=== PATIENT | female | born 1995 | race Caucasian/White ===

== ENCOUNTER → 2021-01-26 22:16 | Outpatient (CLI) | payer OTHER, SELFPAY ==
[2021-01-26 17:58] VITALS: BMI 26.3
[2021-01-26 22:30] LABS: Absolute Lymphocyte Count 3.66 X10^3/uL (0.83-4.51); Absolute Neutrophil Count 5.4 X10^3/uL (2.0-7.7); Basophil# 0.05 X10^3/uL; Basophil% 0.5 % (0-1); Eosinophil# 0.18 X10^3/uL; Eosinophils% 1.8 % (0-5); Hematocrit 41.3 % (37-47); Hemoglobin 13.7 g/dL (12.0-15.0); Lymphocyte # 3.66 X10^3/ul (0.83-4.51); Lymphocyte % 36.7 % (19-41); Mean Corp Hgb Conc 33.2 g/dL (32-36); Mean Corpuscular Hgb 30.4 pg (27.0-32.0); Mean Corpuscular Volume 91.6 fL (81-99); Monocyte# 0.67 X10^3/uL; Monocyte% 6.7 % (0-10); NRBC Flagged by Analyzer 0 % (0-5); Neutrophil # 5.37 X10^3/uL (2.7-7.7); Neutrophil % 53.9 % (47-70); Platelet Count 382 K/mm3 (150-450); RBC Distribution Width CV 12.3 % (11.6-14.6); RBC Distribution Width SD 41.1 fl (35.1-43.9); Red Blood Count 4.51 M/mm3 (4.2-5.4)
[2021-01-26 22:56] LABS: ALB/GLOB Ratio 1.3 RATIO (0.9-2.4); AST(SGOT) 16 U/L (15-37); Alanine Aminotransfer ALT/SGPT 22 U/L (13-56); Alkaline Phosphatase 62 U/L (45-117); Anion Gap 9 (5-15); BUN 13 mg/dL (7-18); BUN/Creat Ratio 15.2 RATIO (10-20); Calcium,Total 8.9 mg/dL (8.5-10.1); Chloride 106 mmol/L (98-107); Creatinine, Serum 0.86 mg/dL (0.55-1.02); EST Glomerular Filtration Rate 85 mL/min (>60); Est Glom Filt Rate - Afr Amer 102 mL/min (>60); Globulin 3.1 g/dL (2.2-4.2); Glucose 98 mg/dL (74-106); Potassium 3.9 mmol/L (3.5-5.1); Protein, Total 7.1 g/dL (6.4-8.2); Sodium Level 140 mmol/L (136-145); T4 Free Direct 0.96 ng/dL (0.76-1.46); Thyroid Stim Hormone (TSH) 2.22 uIU/mL (0.358-3.74)
[2021-01-29 14:20] LABS: Vitamin B12 264 pg/mL (211-911)
== END ==
PROVIDERS: Referring Provider Nurse Practitioner; Visit Provider Nurse Practitioner
DX: R53.83 Other fatigue (principal); R63.5 Abnormal weight gain; K59.00 Constipation, unspecified; G47.00 Insomnia, unspecified
CPT/HCPCS: 80053; 82533; 82607; 84439; 84443; 85025

== ENCOUNTER → 2022-03-14 | Outpatient (CLI) | payer OTHER, SELFPAY | END | disposition home or self-care (01) | LOC: LABSPEC 08:01 | PROVIDERS: Visit Provider Nurse Practitioner | DX: Z34.90 Encounter for supervision of normal pregnancy, unspecified, unspecified trimester (principal) ==

== ENCOUNTER → 2022-03-18 | Outpatient (CLI) | payer OTHER, SELFPAY ==
[2022-03-18 14:35] LABS: Internal QC Validated? YES +Cl - CLEAR BKGD
[2022-03-19 07:31] LABS: Pregnancy, Serum, hCG Quali. POSITIVE Negative
== END | disposition home or self-care (01) ==
PROVIDERS: PCP Nurse Practitioner; Visit Provider Nurse Practitioner
DX: Z34.90 Encounter for supervision of normal pregnancy, unspecified, unspecified trimester (principal)
CPT/HCPCS: 36415; 84703

== ENCOUNTER → 2022-05-17 | Outpatient (CLI) | payer OTHER, SELFPAY ==
[2022-05-17 21:50] LABS: Absolute Lymphocyte Count 3.11 X10^3/uL (0.83-4.51); Absolute Neutrophil Count 8.8 X10^3/uL (2.0-7.7); Basophil# 0.05 X10^3/uL; Basophil% 0.4 % (0-1); Eosinophil# 0.18 X10^3/uL; Eosinophils% 1.4 % (0-5); Hematocrit 37.4 % (37-47); Hemoglobin 13.1 g/dL (12.0-15.0); Lymphocyte # 3.11 X10^3/ul (0.83-4.51); Lymphocyte % 24.3 % (19-41); Mean Corpuscular Hgb 31.6 pg (27.0-32.0); Mean Corpuscular Volume 90.1 fL (81-99); Mean Platelet Vol. 10.2 fl (6.2-12.0); Monocyte# 0.64 X10^3/uL; NRBC Flagged by Analyzer 0 % (0-5); Neutrophil # 8.78 X10^3/uL (2.7-7.7); Neutrophil % 68.4 % (47-70); Platelet Count 325 K/mm3 (150-450); RBC Distribution Width CV 12.4 % (11.6-14.6); RBC Distribution Width SD 40.8 fl (35.1-43.9); Red Blood Count 4.15 M/mm3 (4.2-5.4); White Blood Count 12.8 K/mm3 (4.4-11.0)
[2022-05-17 22:01] LABS: ALB/GLOB Ratio 0.8 RATIO (0.9-2.4); AST(SGOT) 19 U/L (15-37); Alanine Aminotransfer ALT/SGPT 34 U/L (13-56); Albumin, Serum 3.3 g/dL (3.2-5.0); Alkaline Phosphatase 53 U/L (45-117); Anion Gap 8 (5-15); BUN 10 mg/dL (7-18); BUN/Creat Ratio 13.9 RATIO (10-20); Calcium,Total 9.4 mg/dL (8.5-10.1); Chloride 107 mmol/L (98-107); Cholesterol 212 mg/dL (200); Creatinine, Serum 0.72 mg/dL (0.55-1.02); EST Glomerular Filtration Rate 103 mL/min (>60); Est Glom Filt Rate - Afr Amer 124 mL/min (>60); Glucose 88 mg/dL (74-106); High Density Lipoprotein 71 mg/dL; Potassium 4.2 mmol/L (3.5-5.1); Protein, Total 7.3 g/dL (6.4-8.2); Sodium Level 137 mmol/L (136-145); Triglycerides 105 mg/dL; Very Low Density Lipoprotein 21 mg/dL (5-40)
== END | disposition home or self-care (01) ==
PROVIDERS: PCP Nurse Practitioner; Referring Provider Nurse Practitioner; Visit Provider Nurse Practitioner
DX: Z00.00 Encounter for general adult medical examination without abnormal findings (principal)
CPT/HCPCS: 80053; 80061; 85025

== ENCOUNTER → 2023-06-06 | Outpatient (CLI) | payer OTHER, SELFPAY ==
[2023-06-06 20:48] LABS: Absolute Lymphocyte Count 2.99 X10^3/uL (0.83-4.51); Absolute Neutrophil Count 6.6 X10^3/uL (2.0-7.7); Basophil# 0.05 X10^3/uL; Basophil% 0.5 % (0-1); Eosinophil# 0.21 X10^3/uL; Hemoglobin 13.8 g/dL (12.0-15.0); Lymphocyte # 2.99 X10^3/ul (0.83-4.51); Lymphocyte % 28.7 % (19-41); Mean Corp Hgb Conc 32.9 g/dL (32-36); Mean Corpuscular Volume 91.3 fL (81-99); Mean Platelet Vol. 9.9 fl (6.2-12.0); Monocyte# 0.53 X10^3/uL; Monocyte% 5.1 % (0-10); NRBC Flagged by Analyzer 0 % (0-5); Neutrophil # 6.59 X10^3/uL (2.7-7.7); Neutrophil % 63.3 % (47-70); Platelet Count 394 K/mm3 (150-450); RBC Distribution Width CV 12.7 % (11.6-14.6); RBC Distribution Width SD 41.5 fl (35.1-43.9); White Blood Count 10.4 K/mm3 (4.4-11.0)
[2023-06-06 21:08] LABS: ALB/GLOB Ratio 0.9 RATIO (0.9-2.4); AST(SGOT) 8 U/L (15-37); Alanine Aminotransfer ALT/SGPT 21 U/L (13-56); Albumin, Serum 3.5 g/dL (3.2-5.0); Alkaline Phosphatase 58 U/L (45-117); Amylase 58 U/L (25-115); Anion Gap 3 (5-15); BUN 11 mg/dL (7-18); BUN/Creat Ratio 13.1 RATIO (10-20); Calcium,Total 9.2 mg/dL (8.5-10.1); Chloride 109 mmol/L (98-107); Creatinine, Serum 0.84 mg/dL (0.55-1.02); EST Glomerular Filtration Rate 85 mL/min (>60); Est Glom Filt Rate - Afr Amer 103 mL/min (>60); Globulin 4.1 g/dL (2.2-4.2); Glucose 108 mg/dL (74-106); Lipase 50 U/L (13-75); Potassium 3.9 mmol/L (3.5-5.1); Protein, Total 7.6 g/dL (6.4-8.2); Sodium Level 139 mmol/L (136-145); Thyroid Stim Hormone (TSH) 1.25 uIU/mL (0.358-3.74)
== END | disposition home or self-care (01) ==
PROVIDERS: PCP Nurse Practitioner; Referring Provider Nurse Practitioner; Visit Provider Nurse Practitioner
DX: R11.0 Nausea (principal); R52 Pain, unspecified
CPT/HCPCS: 80053; 82150; 83690; 84443; 85025

== ENCOUNTER → 2023-06-21 | Outpatient (CLI) | payer OTHER, SELFPAY ==
--- NOTE | 2023-06-21 08:47 | US_ITS ---
STUDY: ABDOMINAL ULTRASOUND - RIGHT UPPER QUADRANT REASON FOR VISIT: Female, 27 years old Ruq pain n TECHNIQUE: Ultrasound evaluation of the right upper quadrant was performed with real-time and static han-scale imaging. TECHNICAL QUALITY: Adequate. COMPARISON: None. FINDINGS: Liver: The liver measures 16.9 cm. There is normal echogenicity of the liver. The bile ducts are within normal limits. There is hepatic color flow. The direction of portal flow is hepatopetal. There is no demonstrated mass lesion. Gallbladder: Normal distended gallbladder. The gallbladder wall measures 2 mm. There is a negative sonographic Cates''s sign. There is no pericholecystic fluid. There are multiple echogenic structures within the gallbladder, consistent with multiple gallstones. Common Bile Duct (C.B.D.): The common bile duct measures 2 mm. Pancreas: Normal size of the head, body and tail of the pancreas. There is normal echogenicity of the pancreas. There is no demonstrated pancreatic mass or cyst. Right Kidney: Normal size of the right kidney. The right kidney measures 11.3 cm. Normal renal cortex. The right cortex measures 1.3 cm. There is no demonstrated renal mass or cyst. There is no right hydronephrosis. US/Gallbladder IMPRESSION: Cholelithiasis Electronically Signed: Alonzo Hermosillo MD at 21:19 EST ,
== END | disposition home or self-care (01) ==
LOC: US 08:45
PROVIDERS: PCP Nurse Practitioner; Visit Provider Nurse Practitioner
DX: R10.13 Epigastric pain (principal)
CPT/HCPCS: 76705

== ENCOUNTER → 2025-04-20 | Outpatient (CLI) | payer OTHER, SELFPAY ==
--- OUTSIDE RECORDS SUMMARY | 2025-04-20 21:56 | XMS RPT_ITS | CCD ---
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 Breasts: normal-no masses or tenderness or skin changes VP ANCILLARY Additional Details Menstrual History Menstrual StatusMenarcheal Last Menstrual Dkvufh0202/23/2025 VP ANCILLARY Screening Date of Last Pap Smear05/02/22 Last Pap Result, Pt StatedNegative Contraception Contraception MethodBarrier methods for contraception Barrier Method TypeCondom OB History History (1,0,0,1) # 1 Baby 1 Outcome Date: 11/05/2022 Outcome or Result: Vaginal Gest Age: 39 weeks Outcome: Live Sex: Male Wt: 2990 g Maternal Complications: second degree lac Complications: None Anesthesia Type: Epidural Gutierrez Labor: 15 hr 31 min [facility] Problem List/Past Medical History Ongoing Acne Decreased libido Encounter for control pills maintenance Historical Supervision of normal first Procedure/Surgical History Revision L4: 11/2020 L4-S1 Microdiscectomy: 07/2020 Tonsillectomy: 2014 [place] teeth Gardasil completed groin cyst I&D Medications DULoxetine(DULoxetine 20 mg oral delayed release capsule) Allergies No Known Allergies No Known Medication Allergies Social History Alcohol Use:Past Frequency:1-2 times per year Sexual Sexually active:Yes Other contraceptive use:trying for , Past - OCP Substance Abuse - Denies Substance Abuse Tobacco Use:Never (less than 100 in lifetime) Family History Cervical cancer..: Mother. Health Status Family Member(s) Immunizations Vaccine Date Status diphtheria/pertussis, acel/tetanus adult 09/03/2022 Given influenza virus vaccine, inactivated 05/29/2022 Given SARS-CoV-2 (COVID-19, PFIZER) mRNA 162b2 09/11/2021 Recorded pneumococcal 7-valent vaccine 1995 Recorded Comments : Route: Unknown Normal [facility] Comment on above: Order Comment: nathen huerta Result Comment: AMB Physician Progress Note KAREN CESPEDES :1995 Registration Date:02/28/2025 Assessment/Plan Patient is a 29-year-old female with a history of control pill use, acne, and decreased libido presenting for a well woman exam and preconception counseling. 1. Well woman exam Z01.419 - Due for pap smear; performed today as patient is eligible and insurance coverage confirmed. - No history of HPV; annual pap appropriate per guidelines. Depression - On new depression medication for one week; tolerating well so far. - Medication is safe to continue during . Preconception counseling - Advised to start vitamins when attempting conception. - Cleared to continue regular exercise during as previously tolerated. - Will schedule early ultrasound at approximately 8 weeks gestation to confirm dates upon positive test. Medication Reconciliation What When Instructions Unchanged DULoxetine (DULoxetine 20 mg oral delayed release capsule) 90 EA, 0 Refill(s), TAKE 1 CAPSULE BY MOUTH DAILY FOR ANXIETY What How Much When Why Comments Stop Taking ethinyl estradiol-levonorgest rel (Chateal 0.15 mg-30 mcg oral tablet) 1 Tabs Oral DAILY Decreased libido Stop Taking flibanserin (Addyi 100 mg oral tablet) 1 Tabs Oral AT BEDTIME Decreased libido Stop Taking Non-Formulary Med (Herbal Supplement) 1 mL, 0 Refill(s), INJECT 25 UNITS SUBCUTANEOUSLY ONCE A WEEK Chief Complaint Here for annual exam - no refills, considering another , has new depression med. has some brief preconception questions History of Present Illness Disclaimer: The content of this note was generated by an artificial intelligence (AI) language model version 25.Q3.0.0 The patient is a 29-year-old female with a history of prior vaginal delivery and depression, presenting for an annual well woman exam. Obstetric and Gynecologic History The patient is interested in becoming with a second child and inquires about potential difficulties with conception. She has a history of prior vaginal delivery and reports that pain was initially significant but has improved substantially over time. She has not yet started taking vitamins. The patient worked out regularly during her previous , including up to the day of delivery, and plans to continue this practice in future pregnancies. Depression The patient recently started a new depression medication approximately one week ago. She feels it is working adequately so far and describes it as helping to remind her to breathe. Review of Systems Neurological: Positive for depression. Physical Exam Vitals & Measurements BP: 136/70 HT: 168 cm WT: 78.0 kg BMI: 27.64 LMP: 02/23/2025 00:00 EDT Depression Screening Scores No Depression Screening data available for this encounter. Fall Risk Assessment Is the patient ambulatory (mobile): Yes (02/28/25 14:23:00) Have you had a fall within the past: No (02/28/25 14:23:00) Have you had 2 or more falls in the past: No (02/28/25 14:23:00) The vital signs were reviewed and her blood pressure was slightly elevated. General appearance: well developed and well nourished Lungs: Normal respiratory effort Extremities: no edema Psychiatric: Mood: normal VP ANCILLARY: External genitalia: normal, no lesions Urethra: normal meatus Vagina: normal no lesions, white discharge, vault normal Cervix: no lesions, no cervical motion tenderness, normal appearance Uterus: normal mobility, non-tender, normal size, shape and consistency Adnexa: normal Cul de sac: normal Perineum: no hemorrhoids, masses or warts noted Breasts: normal-no masses or tenderness or skin changes VP ANCILLARY Additional Details Menstrual History Menstrual StatusMenarcheal Last Menstrual [id number]/23/2025 VP ANCILLARY Screening Date of Last Pap Smear05/02/22 Last Pap Result, Pt StatedNegative Contraception Contraception MethodBarrier methods for contraception Barrier Method TypeCondom OB History History (1,0,0,1) # 1 Baby 1 Outcome Date: 11/05/2022 Outcome or Result: Vaginal Gest Age: 39 weeks Outcome: Live Sex: Male Wt: 2990 g Maternal Complications: second degree lac Complications: None Anesthesia Type: Epidural Gutierrez Labor: 15 hr 31 min [facility] Problem List/Past Medical History Ongoing Acne Decreased libido Encounter for control pills maintenance Historical Supervision of normal first Procedure/Surgical History Revision L4: 11/2020 L4-S1 Microdiscectomy: 07/2020 Tonsillectomy: 2014 [place] teeth Gardasil completed groin cyst I&D Medications DULoxetine(DULoxetine 20 mg oral delayed release capsule) Allergies No Known Allergies No Known Medication Allergies Social History Alcohol Use:Past Frequency:1-2 time (more content not included)... Normal [facility] Surgery Visit Reporton 06-24 Surgery Visit Report [facility] [address] [place] [address]. [address] [place], [place] [address] OFFICE VISIT Date of Service: 06/24/23 MR#: [id number] Acct: [id number] Name: KAREN CESPEDES Rep #: [id number] : 1995 Provider: Dr. 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 Patient states that it happens worse in the evening. Patient states she did just have lunch and currently is starting to get some discomfort in the epigastric region rates it at 2???3/10. Patient states if it gets bad it can get up to a 5/10. Patient states she does have a high pain tolerance. Patient has been on Protonix 40 mg p.o. daily for 2 weeks and denies any change in her discomfort. Patient just had an ultrasound done showed multiple gallstones normal wall no pericholecystic fluid and normal common bile duct. ROS General General: Yes fatigue; No weight change, appetite, colon cancer or breast cancer HEENT HEENT: No difficulty swallowing, eye injury, eye surgery, swollen glands or hoarseness Endo Endocrine: No thyroid disease, diabetes mellitus, thyroid cancer, Hair loss, heat intolerance or cold intolerance Skin Skin: No rash or changing moles Musc Musculoskeletal: No back problems, arthritis, rheumatoid arthritis, gout or joint pain Cardio Cardiovascular: No murmur, pacemaker, heart disease, atrial fibrillation, high blood pressure, heart attack, heart stent, palpitations, shortness of breat with exertion or chest pain Psych Psychiatric: No depression, anxiety or hearing voices Resp Respiratory: No shortness of breath, No sleep apnea, No cough, No COPD, No asthma, No emphysema and No wheezing Gastro Gastrointestinal: Yes abdominal pain, Yes nausea or vomiting, No diarrhea, No constipation, No blood in stool, No acid reflux, No hemorrhoids, No ulcers, Yes gallbladder problem and No black,tarry stools Wolf Hematologic: No blood thinners, No blood disorders, No bleeding, No anemia and No blood clots Neuro Neurologic: No numbness and No tingling Exam Const General: cooperative, healthy appearing, comfortable and no acute distress [facility] Head: normocephalic and atraumatic Neck Neck: supple Resp Effort Inspection: normal respiratory effort Cardio Rate: regular rate GI Inspection: non-distended Palpation: soft, no hernias and tender in the epigastrum Skin General: no rashes or lesions noted Neuro General: CN's II-XI intact bilaterally Extrem General: normal to inspection Psych Mental Status: mental status grossly normal Attitude: cooperative Assessment and Plan Assessment and Plan (1) Inguinal lymphadenopathy: Status: Deleted (2) Cholelithiasis: Status: Acute (3) Epigastric abdominal pain: Status: Acute Plan Will have patient stay on her Protonix during the perioperative period. Reviewed the anatomy with the patient and discussed the procedure: laparoscopic cholecystectomy with possible cholangiograms, possible open. Review risks including but not limited to bleeding, infection, hernia, bile leak, retained gallstones requiring another procedure ERCP- Endoscopic Retrograde Cholangiopancreatogra phy, injury to another organ (bile ducts, common bile duct, small bowel, etc.) and conversion to an open procedure. All questions were answered. Marsi Morse M.D. Pager: [phone] [facility] [address] [place] [address], [facility], [address] [place] [address] Office: [phone] Coding Level of Care Code Off vis,new,level 3 Diagnoses Inguinal lymphadenopathy R59.0 Cholelithiasis K80.20 Epigastric abdominal pain R10.13 06/25/23 1023 Date Maris Morse MD Cosign Signature: (more content not included)... Normal [facility] Gallbladderon 06-21-2023 Gallbladder [facility] [address] [place], [place] [id number] Gallbladder MR#: [id number] Acct: [id number] Name: KAREN CESPEDES Rep #: [id number] : 1995 F 27 From: Alonzo Hermosillo MD PCP: SERG Askew Status: REG CLI Study: Gallbladder Date of Exam: 06/21/23 Exam# [id number] Ordering Dr: Steven Messina NP N P-C [id number] STUDY: ABDOMINAL ULTRASOUND - RIGHT UPPER QUADRANT REASON FOR VISIT: Female, 27 years old Ruq pain n TECHNIQUE: Ultrasound evaluation of the right upper quadrant was performed with real-time and static han-scale imaging. TECHNICAL QUALITY: Adequate. COMPARISON: None. FINDINGS: Liver: The liver measures 16.9 cm. There is normal echogenicity of the liver. The bile ducts are within normal limits. There is hepatic color flow. The direction of portal flow is hepatopetal. There is no demonstrated mass lesion. Gallbladder: Normal distended gallbladder. The gallbladder wall measures 2 mm. There is a negative sonographic Cates''s sign. There is no pericholecystic fluid. There are multiple echogenic structures within the gallbladder, consistent with multiple gallstones. Common Bile Duct (C.B.D.): The common bile duct measures 2 mm. Pancreas: Normal size of the head, body and tail of the pancreas. There is normal echogenicity of the pancreas. There is no demonstrated pancreatic mass or cyst. Right Kidney: Normal size of the right kidney. The right kidney measures 11.3 cm. Normal renal cortex. The right cortex measures 1.3 cm. There is no demonstrated renal mass or cyst. There is no right hydronephrosis. US/Gallbladder IMPRESSION: Cholelithiasis Electronically Signed: Alonzo Hermosillo MD at 21:19 EST , CC: SERG Messina Child Caregiver: Signed Normal [facility] Absolute lymphocyte countOrd ered By: Steven Messina on 06-06-2023 Lymphocytes Auto (Unsp spec) [#/Vol] 2.99 10*3/uL 0.83-4.51 [facility] Amylaseon 06-06-2023 ASHTYN 58 U/L Normal 25-115 [facility] Comment on above: Performed By: #### L 500.4050, L501.5220, L100.0100, L501.2450, L501.2400 #### [facility] [place], [address] Basophil percentageOrdered B y: Steven Messina on 06-06-2023 Amylase [Catalytic activity/Vol] 58 U/L 25-115 [facility] Basophils/100 WBC (Bld) 0.5 % 0-1 [facility] Bilirubin [Mass/Vol] 0.20 mg/dL 0.20-1.00 [facility] Comment on above: For patients on eltr ombopag therapy, use of Dimension [place] TBIL is not recommended. Chloride [Moles/Vol] 109 mmol/L 98-107 [facility] Eosinophils/100 WBC (Bld) 2.0 % 0-5 [facility] Glucose [Mass/Vol] 108 mg/dL 74-106 [facility] Comment on above: Fasting Glucose resu lt from 100 to 125 mg/dL suggests IMPAIRED HOMEOSTASIS per A.D.A. criteria. Neutrophils (Bld) [#/Vol] 6.6 10*3/uL 2.0-7.7 [facility] Neutrophils/100 WBC (Bld) 63.3 % 47-70 [facility] Potassium [Moles/Vol] 3.9 mmol/L 3.5-5.1 [facility] Protein [Mass/Vol] 7.6 g/dL 6.4-8.2 [facility] Sodium [Moles/Vol] 139 mmol/L 136-145 [facility] WBC (Bld) [#/Vol] 10.4 10*3/uL 4.4-11.0 [facility] Blood erythrocytes count (nu mber/volume)Ordered By: Steven Messina on 06-06-2023 RBC (Bld) [#/Vol] 4.60 10*6/uL 4.2-5.4 [facility] Blood hemoglobin measurement (mass/volume)Ordered By: Steven Messina on 06-06-2023 Hemoglobin (Bld) [Mass/Vol] 13.8 g/dL 12.0-15.0 [facility] Blood lymphocytes/100 leukoc ytesOrdered By: Steven Messina on 06-06-2023 Lymphocytes/100 WBC (Bld) 28.7 % 19-41 [facility] Blood monocytes/100 leukocyt esOrdered By: Steven Messina on 06-06-2023 Monocytes/100 WBC (Bld) 5.1 % 0-10 [facility] Blood platelet mean volumeOr dered By: Steven Messina on 06-06-2023 Platelet mean volume (Bld) [Entitic vol] 9.9 fL 6.2-12.0 [facility] CBC W/Diff, Automatedon 110 -2022 Absolute Lymph 2.99 X10 3/uL Normal 0.83-4.51 [facility] Comment on above: Performed By: #### L 500.4050, L501.9520, L100.0100, L501.2450, L501.2400 #### [facility] [address] [place], [address] Absolute Neut 6.6 X10 3/uL Normal 2.0-7.7 [facility] Comment on above: Performed By: #### L 500.4050, L501.9520, L100.0100, L501.2450, L501.2400 #### [facility] [address] [place], [address] Basophils/100 WBC (Bld) 0.5 % Normal 0-1 [facility] Comment on above: Performed By: #### L 500.4050, L501.9520, L100.0100, L501.2450, L501.2400 #### [facility] [address] [place], [address] Eosinophils/100 WBC (Bld) 2.0 % Normal 0-5 [facility] Comment on above: Performed By: #### L 500.4050, L501.9520, L100.0100, L501.2450, L501.2400 #### [facility] [address] [place], [address] Erythrocyte distribution width (RBC) [Ratio] 12.7 % Normal 11.6-14.6 [facility] Comment on above: Performed By: #### L 500.4050, L501.9520, L100.0100, L501.2450, L501.2400 #### [facility] [address] [place], [address] Hematocrit (Bld) [Volume fraction] 42.0 % Normal 37-47 [facility] Comment on above: Performed By: #### L 500.4050, L501.9520, L100.0100, L501.2450, L501.2400 #### [facility] [address] [place], [address] Hemoglobin (Bld) [Mass/Vol] 13.8 g/dL Normal 12.0-15.0 [facility] Comment on above: Performed By: #### L 500.4050, L501.9520, L100.0100, L501.2450, L501.2400 #### [facility] [address] [place], [address] IG% 0.400 Normal 0.0-0.9 [facility] Comment on above: Result Comment: IG% - Immature Granulocytes (promyelocytes, myelocytes and metamyelocytes) > 1% indicates that a LEFT SHIFT is Present. Performed By: #### L 500.4050, L501.9520, L100.0100, L501.2450, L501.2400 #### [facility] [address] [place], [address] Lymphocytes/100 WBC (Bld) 28.7 % Normal 19-41 [facility] Comment on above: Performed By: #### L 500.4050, L501.9520, L100.0100, L501.2450, L501.2400 #### [facility] [address] [place], [address] MCH (RBC) [Entitic mass] 30.0 pg Normal 27.0-32.0 [facility] Comment on above: Performed By: #### L 500.4050, L501.9520, L100.0100, L501.2450, L501.2400 #### [facility] [address] [place], [address] MCHC (RBC) [Mass/Vol] 32.9 g/dL Normal 32-36 [facility] Comment on above: Performed By: #### L 500.4050, L501.9520, L100.0100, L501.2450, L501.2400 #### [facility] [address] [place], [address] MCV (RBC) [Entitic vol] 91.3 fL Normal 81-99 [facility] Comment on above: Performed By: #### L 500.4050, L501.9520, L100.0100, L501.2450, L501.2400 #### [facility] [address] [place], [address] Monocytes/100 WBC (Bld) 5.1 % Normal 0-10 [facility] Comment on above: Performed By: #### L 500.4050, L501.9520, L100.0100, L501.2450, L501.2400 #### [facility] [address] [place], [address] Neutrophils/100 WBC (Bld) 63.3 % Normal 47-70 [facility] Comment on above: Performed By: #### L 500.4050, L501.9520, L100.0100, L501.2450, L501.2400 #### [facility] [address] [place], [address] Nucleated RBC (Bld) [#/Vol] 0 10*3/uL Normal 0-5 [facility] Comment on above: Performed By: #### L 500.4050, L501.9520, L100.0100, L501.2450, L501.2400 #### [facility] [address] [place], [address] Platelet mean volume (Bld) [Entitic vol] 9.9 fL Normal 6.2-12.0 [facility] Comment on above: Performed By: #### L 500.4050, L501.9520, L100.0100, L501.2450, L501.2400 #### [facility] [address] [place], [address] Platelets (Bld) [#/Vol] 394 10*3/uL Normal 150-450 [facility] Comment on above: Performed By: #### L 500.4050, L501.9520, L100.0100, L501.2450, L501.2400 #### [facility] [address] [place], [address] RBC (Bld) [#/Vol] 4.60 10*6/uL Normal 4.2-5.4 [facility] Comment on above: Performed By: #### L 500.4050, L501.9520, L100.0100, L501.2450, L501.2400 #### [facility] [address] [place], [address] RDW SD 41.5 fl Normal 35.1-43.9 [facility] Comment on above: Performed By: #### L 500.4050, L501.9520, L100.0100, L501.2450, L501.2400 #### [facility] [address] [place], [address] WBC (Bld) [#/Vol] 10.4 10*3/uL Normal 4.4-11.0 [facility] Comment on above: Performed By: #### L 500.4050, L501.9520, L100.0100, L501.2450, L501.2400 #### [facility] [address] [place], [address] Comprehensive Metabolic Prof cynthia 06-06-2023 Albumin [Mass/Vol] 3.5 g/dL Normal 3.2-5.0 [facility] Comment on above: Performed By: #### L 500.4050, L501.9520, L100.0100, L501.2450, L501.2400 #### [facility] [address] [place], [address] Albumin/Globulin [Mass ratio] 0.9 {ratio} Normal 0.9-2.4 [facility] Comment on above: Performed By: #### L 500.4050, L501.9520, L100.0100, L501.2450, L501.2400 #### [facility] [address] [place], [address] ALK P 58 U/L Normal 45-117 [facility] Comment on above: Performed By: #### L 500.4050, L501.9520, L100.0100, L501.2450, L501.2400 #### [facility] [address] [place], [address] ALT [Catalytic activity/Vol] 21 U/L Normal 13-56 [facility] Comment on above: Performed By: #### L 500.4050, L501.9520, L100.0100, L501.2450, L501.2400 #### [facility] [address] [place], [address] AST [Catalytic activity/Vol] 8 U/L Low 15-37 [facility] Comment on above: Performed By: #### L 500.4050, L501.9520, L100.0100, L501.2450, L501.2400 #### [facility] [address] [place], [address] Bilirubin [Mass/Vol] 0.20 mg/dL Normal 0.20-1.00 [facility] Comment on above: Result Comment: For patients on eltrombopag therapy, use of Dimension [place] TBIL is not recommended. Performed By: #### L 500.4050, L501.9520, L100.0100, L501.2450, L501.2400 #### [facility] [address] [place], [address] BUN/CRE 13.1 RATIO Normal 10-20 [facility] Comment on above: Performed By: #### L 500.4050, L501.9520, L100.0100, L501.2450, L501.2400 #### [facility] [address] [place], [address] CA,Total 9.2 mg/dL Normal 8.5-10.1 [facility] Comment on above: Performed By: #### L 500.4050, L501.9520, L100.0100, L501.2450, L501.2400 #### [facility] [address] [place], [address] Chloride [Moles/Vol] 109 mmol/L High 98-107 [facility] Comment on above: Performed By: #### L 500.4050, L501.9520, L100.0100, L501.2450, L501.2400 #### [facility] [address] [place], [address] CO2 [Moles/Vol] 27.0 mmol/L Normal 21.0-32.0 [facility] Comment on above: Performed By: #### L 500.4050, L501.9520, L100.0100, L501.2450, L501.2400 #### [facility] [address] [place], [address] Creatinine [Mass/Vol] 0.84 mg/dL Normal 0.55-1.02 [facility] Comment on above: Result Comment: The validity of the calculated GFR GFRAA in patients over 70 years has not been determined. Clinical correlation is essential. Performed By: #### L 500.4050, L501.9520, L100.0100, L501.2450, L501.2400 #### [facility] [address] [place], [address] EST GFR - AA 103 mL/min Normal >60 [facility] Comment on above: Result Comment: Afri can Welsh GFR Calc Performed By: #### L 500.4050, L501.9520, L100.0100, L501.2450, L501.2400 #### [facility] [address] [place], [address] GAP 3 Low 5-15 [facility] Comment on above: Performed By: #### L 500.4050, L501.9520, L100.0100, L501.2450, L501.2400 #### [facility] [address] [place], [address] GFR/1.73 sq M.predicted among non-blacks MDRD (S/P/Bld) [Vol rate/Area] 85 mL/min/{1.73_m2} Normal >60 [facility] Comment on above: Result Comment: Non- GFR Calc Performed By: #### L 500.4050, L501.9520, L100.0100, L501.2450, L501.2400 #### [facility] [address] [place], [address] Globulin (S) [Mass/Vol] 4.1 g/dL Normal 2.2-4.2 [facility] Comment on above: Performed By: #### L 500.4050, L501.9520, L100.0100, L501.2450, L501.2400 #### [facility] [address] [place], [address] Glucose [Mass/Vol] 108 mg/dL High 74-106 [facility] Comment on above: Result Comment: Fast ing Glucose result from 100 to 125 mg/dL suggests IMPAIRED HOMEOSTASIS per A.D.A. criteria. Performed By: #### L 500.4050, L501.9520, L100.0100, L501.2450, L501.2400 #### [facility] [address] [place], [address] Potassium [Moles/Vol] 3.9 mmol/L Normal 3.5-5.1 [facility] Comment on above: Performed By: #### L 500.4050, L501.9520, L100.0100, L501.2450, L501.2400 #### [facility] [address] [place], [address] Sodium [Moles/Vol] 139 mmol/L Normal 136-145 [facility] Comment on above: Performed By: #### L 500.4050, [id number], L100.0100, L501.2450, L501.2400 #### [facility] [address] [place], [address] T PROT 7.6 g/dL Normal 6.4-8.2 [facility] Comment on above: Performed By: #### L 500.4050, L501.9520, L100.0100, L501.2450, L501.2400 #### [facility] [address] [place], [address] Urea nitrogen [Mass/Vol] 11 mg/dL Normal 7-18 [facility] Comment on above: Performed By: #### L 500.4050, L501.9520, L100.0100, L501.2450, L501.2400 #### [facility] [address] [place], [address] Determination of erythrocyte mean corpuscular volume (MCV)Ordered By: Steven Messina on 06-06-2023 MCV (RBC) [Entitic vol] 91.3 fL 81-99 [facility] Hematocrit Auto (Bld) [Volum e fraction]Ordered By: Steven Messina on 06-06-2023 Hematocrit (Bld) [Volume fraction] 42.0 % 37-47 [facility] - Chemistry and C hemistry - challengeOrdered By: Steven Messina on 06-06-2023 ALP [Catalytic activity/Vol] 58 U/L 45-117 [facility] ALT [Catalytic activity/Vol] 21 U/L 13-56 [facility] CO2 [Moles/Vol] 27.0 mmol/L 21.0-32.0 [facility] Globulin (S) [Mass/Vol] 4.1 g/dL 2.2-4.2 [facility] Lipase [Catalytic activity/Vol] 50 U/L - [facility] Comment on above: Please note:LIPASE r evised reference range effective 22. New Lipase methodology. Expected to produce lower values than the previous assay method. NEW Reference Range: 13 - 75 U/L Urea nitrogen/Creatinine [Mass ratio] 13.1 mg/mg 10-20 [facility] - Hematology and Cell countsOrdered By: Steven Messina on 06-06-2023 Erythrocyte distribution width (RBC) [Entitic vol] 41.5 fL 35.1-43.9 [facility] Erythrocyte distribution width (RBC) [Ratio] 12.7 % 11.6-14.6 [facility] Immature granulocytes/100 WBC (Bld) 0.400 % 0.0-0.9 [facility] Comment on above: IG% - Immature Granu locytes (promyelocytes, myelocytes and metamyelocytes) > 1% indicates that a LEFT SHIFT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
[2025-04-20 22:19] LABS: Internal QC Validated? YES +Cl - CLEAR BKGD
[2025-04-20 22:20] LABS: Record Kit Lot#, Serum Preg. 964736
[2025-04-20 22:28] LABS: Pregnancy, Serum, hCG Quali. POSITIVE Negative
== END | disposition home or self-care (01) ==
PROVIDERS: PCP Nurse Practitioner; Visit Provider Nurse Practitioner
DX: N91.2 Amenorrhea, unspecified (principal)
CPT/HCPCS: 84703